=== PATIENT | male | born 2000 | race Caucasian/White ===

== ENCOUNTER 2022-07-10 21:15 | Emergency (ER) | payer BC ==
[2022-07-10] MEDS ORDERED: Acetaminophen 500 MG TAB ONE (21:43)
[2022-07-10 22:58] LABS: SARS-CoV-2 NAA Rapid Test Not Detected (NotDetected)
[2022-07-10] MEDS ORDERED: Ketorolac Tromethamine 30 MG/ML VIAL ONE (23:03)
== END 2022-07-11 00:08 | disposition home or self-care (01) ==
LOC: CSHERS 21:15
DX: B34.9 Viral infection, unspecified (principal); Z20.822 Contact with and (suspected) exposure to COVID-19
CPT/HCPCS: 87081; 87430; 96372; 99283; J1885